=== PATIENT | female | born 1995 ===

== ENCOUNTER 2024-01-18 12:36 | Outpatient (CLI) | payer OTHER ==
--- NOTE | 2024-01-20 11:41 | MRI Report ---
PROCEDURE: Ankle LT WO INDICATIONS: LEFT ANKLE PAIN; history of surgery left ankle ligaments 2006 TECHNIQUE: Noncontrast Magnetic Resonance Imaging (MRI) of the ankle/hindfoot was performed utilizing the follow ing sequences: sagittal T1 spin echo, sagittal T2 fast spin echo with fat saturation, axial PD fast s pin echo, axial T2 fast spin echo with fat saturation, coronal T1 spin echo, and coronal T2 fast spin echo with fat saturation. COMPARISON: None. FINDINGS: Image quality: Excellent. Bones and joints: Mild nonspecific osseous edema is seen in the anterior aspect of the distal tibia. No fracture line i s seen. Small tibiotalar effusion. No hindfoot coalition. The ankle mortise is maintained. No osteoch ondral defect is seen at the talar dome. Medial structures: Mild thickening of the distal tibiospring ligament is suspicious for a remote prior low-grade sprain. The spring ligament components seen in the deep deltoid ligament appear to be intact. There is mild tendinosis of the distal posterior tibialis tendon. The flexor digitorum longus and flexor hallucis l ongus tendons are intact. The posterior tibial neurovascular bundle appears normal within the tarsal tunnel, without extrinsic mass effect. Lateral structures: Stable postsurgical changes are seen from lateral ligament repair. No recurrent full thickness latera l ligament tearing is seen. The anterior and posterior distal tibiofibular ligaments are intact. The peroneus brevis and longus tendons are intact. The sinus tarsi demonstrates normal fatty signal. Anterior structures: The tibialis anterior, extensor hallucis longus, and extensor digitorum longus tendons appear intact. Posterior and plantar structures: The Achilles tendon is intact. The proximal plantar fascia is intact. No disproportionate atrophy of the abductor digiti minimi muscle. IMPRESSION: 1.Postsurgical changes are seen from lateral ligament repair with an intact surgical construct. No re current full-thickness tearing is seen. 2.Nonspecific osseous edema at the anterior aspect of the distal tibia, possibly related to an osseou s contusion or stress reaction although other sources of edema are not excluded. No fracture line is seen. Small tibiotalar effusion. 3.Remote prior low-grade sprain of the distal tibiospring ligament. 4.Mild distal posterior tibialis tendinosis. Reviewed by: Bryant Paul MD on 01/20/2024 11:39 AM PST Approved by: Bryant Paul MD on 01/20/2024 11:39 AM [facility] Station ID: [id number]
== END 2024-01-18 12:37 | disposition home or self-care (01) ==
LOC: DI 12:36
DX: M67.972 Unspecified disorder of synovium and tendon, left ankle and foot (principal); M79.672 Pain in left foot; M25.572 Pain in left ankle and joints of left foot